=== PATIENT | male | born 1945 | race Caucasian/White ===

== ENCOUNTER 2019-05-03 16:22 | Inpatient (IN) | payer OTHER ==
[~2019-05-03] VITALS: Ht 175.3 cm; Wt 59.1 kg
--- NOTE | ~2019-05-03 | O ---
[facility] [place] [address] OPERATIVE REPORT Name: MAGALY PALUMBO Kyra Room #: 208-P ADM IN M.R.#: [id number] Admission: 05/03/19 Attend Phys: Jacqueline Gruber MD Discharge: Date of : 47 Report #: [id number] THIS REPORT FOR: //name// CC: Jacqueline Arroyo DATE OF SERVICE: 05/08/2019 PREOPERATIVE DIAGNOSIS: Decubitus ulcer, sacrum and bilateral hip. POSTOPERATIVE DIAGNOSIS: Decubitus ulcer, sacrum and hip. OPERATIVE PROCEDURE DONE: Excisional debridement of decubitus ulcers. OPERATING SURGEON: Ilya Pagan MD GLASS POLISHER: Alvaro. OPERATIVE FINDINGS: The patient was noted to have a large decubitus ulcers in the sacral region and also one in the right hip and one in the left. The right hip ulcer measured 6 cm, sacral ulcer measured 4 cm, 5 cm and 6 cm in diameter. The left hip decubitus ulcer was not debrided. INDICATIONS FOR THE PROCEDURE: The patient is a 74-year-old male who presented with multiple decubitus ulcers with some necrotic tissue at the floor of the ulcers. The patient was advised excisional debridement. DESCRIPTION OF PROCEDURE: After explaining to the patient in detail and informed consent was obtained, the patient was identified in the preoperative holding area. The patient was transferred to the operating room and was placed in supine position. Sequential compressive devices were placed for DVT prophylaxis. No preoperative antibiotics were given as the patient was already on antibiotics. The patient was placed in left lateral position. There were three decubitus ulcers, one measuring 4 cm, 5 cm and 6 cm. All were stage 4 ulcers. I started to take down all the necrotic tissue, excisional debridement of this was done up to the fascia and the surrounding subcutaneous tissue using a #15 blade. All the three ulcers of the sacral region were debrided distally. Thorough saline irrigation was given and the wound was packed. I also then debrided the wound on the right hip ulcer that measured approximately 6 cm. Again, this was a stage 4 ulcer. An excisional debridement of the necrotic tissue and was done and the wound was packed. Dressing was placed. The patient was stable at the end of the procedure. The patient was awoken from anesthesia and was transferred to the recovery room in stable condition. ESTIMATED BLOOD LOSS: Approximately [address] [address] OPERATIVE REPORT Name: MAGALY PALUMBO Room #: 208-P [facility] IN M.R.#: [id number] Admission: 05/03/19 Attend Phys: Jacqueline Gruber MD Discharge: Date of : 47 Report #: [id number] CONDITION THE PATIENT: Stable. FLUIDS GIVEN: Per anesthesia notes. SPECIMEN SENT: None. COMPLICATIONS: None. By: [id number] Ilya Pagan MD /nt
[2019-05-03 16:25] VITALS: BP 97/58
[2019-05-03] MEDS ORDERED: DORYX MPC120 MG PO (16:35)
[2019-05-03] MEDS ORDERED: BISACODYL10 MG RECTAL (16:53)
[2019-05-03] MEDS ORDERED: IRON325 M1 PO (17:20)
[2019-05-03] MEDS ORDERED: MAALOX ADVANCE355 M1 PO (17:21)
[2019-05-03] MEDS ORDERED: MILK OF MA400 MG/5 M PO (17:22)
[2019-05-03] MEDS ORDERED: REMERON SOLTAB45 MG PO (17:27)
[2019-05-03] MEDS ORDERED: MS CONTIN 30 MG30 M1 PO (17:28)
[2019-05-03] MEDS ORDERED: PEPCID20 MG PO (17:29)
[2019-05-03] MEDS ORDERED: NORCO 5-325 TA1 EAC1 PO (17:29)
[2019-05-03] MEDS ORDERED: TOPAMAX100 MG PO (17:30)
[2019-05-03] MEDS ORDERED: SANTYL OINTMENT30 G1 TOP (17:30)
[2019-05-03] MEDS ORDERED: POTASSIUM20 PO (17:30)
[2019-05-03] MEDS ORDERED: NORVASC 2.5 MG2.5 M1 PO (17:32)
[2019-05-03] MEDS ORDERED: VITAMIN C500 M2 PO (17:35)
[2019-05-03] MEDS ORDERED: CLONAZEPAM 0.50.5 M1 PO (17:36)
[2019-05-03] MEDS ORDERED: CARVEDILOL12.5 MG PO (17:36)
[2019-05-03 17:39] LABS: ABSOLUTE NEUTROPHILS 12.6 thou/uL (1.4-8.2); BASOPHILS 0.7 % (0.0-2.0); EOSINOPHILS 1.4 % (0.0-3.0); HEMATOCRIT 27.6 % (42.0-52.0); HEMOGLOBIN 9.3 gm/dL (14.0-18.0); LYMPHOCYTES 14.5 % (24.0-44.0); MCH 30.4 pg (26.0-34.0); MCHC 33.5 g/dL (28.0-37.0); MCV 90.8 fL (80.0-100.0); MONOCYTES 7.8 % (1.0-8.0); PLATELET COUNT 446 thou/uL (150-400); POLYS 75.6 % (36.0-66.0); RBC 3.04 mil/uL (4.50-6.00); RDW 16.4 % (10.5-14.5); WBC 16.7 thou/uL (4.0-11.0)
[2019-05-03 17:46] VITALS: BP 99/53
[2019-05-03 17:47] LABS: CALCIUM 8.8 mg/dL (8.5-10.1); CREATININE 0.9 mg/dL (0.7-1.3); POTASSIUM 3.9 mmol/L (3.5-5.1)
[2019-05-03 20:13] VITALS: BP 102/42
[2019-05-03 20:30] VITALS: BP 115/60
[2019-05-04] MEDS ORDERED: PROTONIX40 M2 PO (00:14)
[2019-05-04] MEDS ORDERED: CLONAZEPAM 0.50.5 M1 PO (00:15)
--- NOTE | 2019-05-04 00:50 | NUR ---
New pt from the ER with multiple wounds in his sacrum, heels, R hip and L lower buttocks. pt arrived unit @ around 194. pt is a&ox2, forgetful and not very good historian. assessments were completed and fluids and abx hung. pt recieved his night time meds. c/o of pain and was medicated with sceduled ER morphine. pt refused to turn for nurse to take pictures at this time, stated we should try at a later time. lunch box given. pt's been npo @midnight for a possible procedure tomorrow. Contact prec in place for a hx of cdiff and awaiting stool sample collection. v/s stable, no s/s of distress, call pemberton within reach. will cont to monitor
[2019-05-04 05:04] LABS: HEMATOCRIT 25.2 % (42.0-52.0); HEMOGLOBIN 8.4 gm/dL (14.0-18.0); MCH 30.4 pg (26.0-34.0); MCHC 33.3 g/dL (28.0-37.0); MCV 91.4 fL (80.0-100.0); RBC 2.76 mil/uL (4.50-6.00); RDW 16.3 % (10.5-14.5); WBC 12.5 thou/uL (4.0-11.0)
[2019-05-04 05:13] LABS: ALBUMIN 2.1 g/dL (3.4-5.0); CALCIUM 8.8 mg/dL (8.5-10.1); CREATININE 0.9 mg/dL (0.7-1.3); POTASSIUM 3.6 mmol/L (3.5-5.1); TOTAL BILIRUBIN 0.2 mg/dL (<0.1-1.0); TOTAL PROTEIN 6.4 g/dL (6.4-8.2)
[2019-05-04 08:41] VITALS: BP 100/51
--- NOTE | 2019-05-04 13:54 | NUR ---
WOUND CONSULT; ROUNDING WITH DR RUDOLPH. THIS PATIENT HAS (7) PRESSURE WOUNDS. THE BILATERAL HIPS, SACRUM AND BUTTOCL WELL THE LEFT ILIAC CREST AND LEFT ISCHIAL TUBEROSITY AND THE PERIRECTUM. ALL ARE CHRONIC AND STAGE 4. THE PATIENT IS ALERT AND ORIENTED. NO ODOR NOTED. RECOMMENDATIONS; 06/24 ANTONIA MOIST GAUZE PACKED IT WOUND COVER WITH ABD,DAILY/PRN
--- NOTE | 2019-05-04 15:48 | NUR ---
Case opened to follow for dc planning. Pt is alert and oriented x 3 but forgetful. He admitted from SNF at [facility]. He has been there since 04/12/19 and went there from [facility]. He was being treated for multiple stg iv wounds and therapy. He has been readmitted for evaluation of his wounds and possible surgical debridement. LTAC referral may be indicated. Prior to this the pt was living at home with his . Both are now at [facility] and likely need shelter care. The pt's is his primary emergency contact and their son Casey the alternate. The pt has a hx of parapelgia and functioned at a w/c level. It sounds as though they were not doing well at home prior to his admission to [facility]. The community health nursing director, Alem is faxing a copy of his living will and the family's contact numbers. She indicates they were anticipating he will need LTAC prior to returning there. Possible surgical debridement. Nurses station number given so pt's spouse can call and get update on his condition.
[2019-05-04 16:02] VITALS: BP 126/65
--- NOTE | 2019-05-04 19:51 | NUR ---
Assumed Pt care @ 0700 am. Assessment completed, VSS, A&Ox4. Pt on Special Contact to R/O C. Diff. Sent sample to culture/lab but Pharmacy cancelled order since Pt stool did not meet paramenters. Pt stool was soft and formed, not loose or had odor. Pt had three small BM today. Pt home HX is that he lives with his in Shelter and paperwork will be forthcoming for DPOA. Pt claims he can feel cold and pain in lower extremities. Has a good appetite and have ordered supplemental per Dr. Gruber verbal order. Also DC Amlodopine since Pt refused and states he does not take BP med or anything for his heart (i.e. angina, arrhythmias). Pt will be NPO after midnight as procedure for debridement possible.
[2019-05-04 20:15] VITALS: BP 132/66
--- NOTE | 2019-05-05 06:03 | NUR ---
assumed care of pt @1915. pt alert and oriented. took his night time pills with no hesitation. wound dressings clean dry and intact. v/s stable. no s/s distress. pt has been npo after midnight for a debridement of his wounds today. will cont to monitor
[2019-05-05 08:46] VITALS: BP 115/61
--- NOTE | 2019-05-05 10:48 | NUR ---
DISCHARGE PLANNING. IT IS INDICATED THAT PATIENT MAY BENEFIT FROM LTAC PLACEMENT ONCE HE IS MEDICALLY READY FOR DISCHARGE. PATIENT REFERRAL FAXED TO [facility] AND [facility] FOR REVIEW. UNIT SW AWARE. FOLLOWING TO ASSIST.
--- NOTE | 2019-05-05 11:54 | NUR ---
SW reviewed chart and spoke with nursing and attending physician. Pt is scheduled to have a debridement today. SW met with pt at bedside to discuss possible LTAC referral. Pt is agreeable if needed, but is also agreeable with returning to [facility], where his is. Referral faxed to [facility] this morning. [facility] liaison to evaluate and follow up on Wednesday. GUILLERMINA is following to assist as needed with discharge planning.
--- NOTE | 2019-05-05 13:01 | HC ---
[facility] [place] [address] CONSULTATION Name: MAGALY PALUMBO Kyra Room #: 460-P ADM IN M.R.#: [id number] Admission: 05/03/19 Attend Phys: Jacqueline Gruber MD Discharge: Date of : 47 Report #: [id number] THIS REPORT FOR: //name// CC: Jacqueline Arroyo DATE OF SERVICE: 05/04/2019 INFECTIOUS DISEASE CONSULTATION REASON FOR CONSULTATION: I was asked to evaluate concerning pelvic osteomyelitis. HISTORY OF PRESENT ILLNESS: The patient is a 74-year-old with history of chronic pelvic wounds and osteomyelitis in the setting of cauda equina syndrome and paraplegia. He has a history of seizure disorder, chronic pain syndrome, anxiety. He was at home with recent admission to the longterm due to progressive wounds. Because of the worsening of these areas, he was hospitalized for further care. No fever, chills or sweats. The patient was a poor historian. Discussed with wound care team in detail today. He has extensive wounds involving the sacrum and both hips, greater trochanters. Previously he had infection involving the right ankle. The patient has had no cough or sputum production. No nausea or vomiting. His appetite has been reasonable. He is incontinent of bowel and bladder and has an indwelling Marsh catheter. He was on doxycycline. Now on vancomycin and Zosyn. He has been seen by General Surgery who plans on further debridement. ALLERGIES: None known. MEDICATIONS: As noted on his MAR including doxycycline, iron, bisacodyl rectal suppository, Maalox, Milk of Magnesia, Remeron, MS Contin, Oak, Pepcid, potassium, Topamax, Norvasc, vitamin C, Coreg, clonazepam. PAST MEDICAL HISTORY: Seizure disorder, cauda equina syndrome, paraplegia, sacral wounds, osteomyelitis of his right ankle and foot, C. difficile colitis, anxiety, gastroesophageal reflux, anemia, protein-calorie malnutrition, chronic pain syndrome and narcotic dependence, neurogenic bladder and bowel. FAMILY HISTORY: Noncontributory. SOCIAL HISTORY: Nonsmoker, no significant alcohol intake. REVIEW OF SYSTEMS: A 10-point review of system was negative other than what has been described above. PHYSICAL EXAMINATION: [facility] [address] [place] [address] CONSULTATION Name: MAGALY PALUMBO Room #: 460-[facility] IN ..#: [id number] Admission: 05/03/19 Attend Phys: Jacqueline Gruber MD Discharge: Date of : 47 Report #: [id number] VITAL SIGNS: He was afebrile and hemodynamically stable. GENERAL: He was alert and cooperative. He was paraplegic. Full-thickness skin wounds with exposed muscle, fibrinous material, involving the sacrum and both hips. He was malnourished in appearance. No palpable adenopathy. EYES: Without scleral icterus. MOUTH: Without mucositis. CHEST: Lungs were clear. HEART: Regular, without murmur. ABDOMEN: Soft and nontender. EXTREMITIES: With contractures in the lower extremities. No peripheral edema. Right chest Port-A-Cath, Marsh catheter in place. PSYCHIATRIC: Mood normal. LABORATORY STUDIES: Hemoglobin 8.4; WBC 12.5, platelet count 420,000. Differential unremarkable. Sedimentation rate 92. Creatinine 0.9. Liver function test normal. C-reactive protein 64. C. difficile by PCR was canceled. Blood and wound cultures are pending. RADIOLOGICAL DATA: CT scan as noted above with evidence of sacral myositis and involvement of the left iliopsoas and gluteus muscles. Left hip and ischium osteomyelitis and suspected possible abscess in the region, right hip involvement as well. Proctitis and bladder wall thickening. IMPRESSION: 1. A 74-year-old paraplegic with cauda equina syndrome. 2. 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 3. Anxiety and chronic pain syndrome. 4. Seizure disorder. 5. History of Clostridium difficile colitis. 6. Neurogenic bowel and bladder with chronic indwelling Marsh catheter. 7. Previous right ankle osteomyelitis. RECOMMENDATIONS: Continue IV antibiotic therapy while awaiting culture results. Surgical debridement and wound care. May require more extensive orthopedic and plastic surgery in the future. Screen for C. difficile colitis, if diarrhea presents itself. <ELECTRONICALLY SIGNED> By: Ke Hopson MD 05/05/19 1301 [id number] Ke Hopson MD /nt
[2019-05-05 15:18] VITALS: BP 103/53
--- NOTE | 2019-05-05 15:38 | NUR ---
Nutrition: pt admitted with chronic sacral and bilateral ischial wounds, plan debridement and possible wound vac placement. pt reports current weight of 128# up from a low of 115#. Eats 50-75 % of meals and 100% of Ensure enlive TID. Understands protein needs and able to verbalize sources. Place as low risk with interventions in place.
--- NOTE | 2019-05-05 18:38 | NUR ---
Assumed Pt care @ 0700am. Assessment completed, VSS, A&Ox4. Dr. Vaz here and stated Pt would not be getting debridement today so no longer NPO. Changed wounds on Pt and did would care in the AM. Pt had a large bowel movement and tolerated wound care well. Pt stated he did not sleep well last evening so did not sleep until around 5am and slept until 0900am. Patient refused Amlodipine and Carvedilol again today. Pt also refused blood sugar checks and SCD, as well as boot that was ordered for him. Wound care team is aware as Pt stated that he didn't want the boot/SCD. Pt tolerates meals well and drinks all of the supplement ordered for all meals. Pt was alert and awake all morning and afternoon.
--- NOTE | 2019-05-05 18:46 | NUR ---
Dr. Vaz called and stated Pt will need to be NPO after midnight for [facility] Excisional Debridement for 05/06/19 @ 1100am.
[2019-05-05 20:17] VITALS: BP 115/56
[2019-05-06 08:00] VITALS: BP 136/76
[2019-05-06 10:43] LABS: HEMATOCRIT 27.8 % (42.0-52.0); HEMOGLOBIN 9.1 gm/dL (14.0-18.0)
[2019-05-06 15:00] VITALS: BP 146/82
--- NOTE | 2019-05-06 18:02 | NUR ---
ASSUMED PT CARE AT 7AM.PT IN BED RESTING. ASSESSMENT COMPLETED.VSS.PT WANTED TO KNOW WHEN HE WILL BE GOING FOR SURGERY TODAY.RECEIVED CALL FROM SURGERY AND WAS TOLD AROUND 10AM.PT INFORMED AND HE NOTIFIED HIS .AROUND 1015 PT LEFT PER BED ACCOMPANIED BY 2 RNS FROM OR.PT CAME BACK TO UNIT AROUND 1130AM WITHOUT SURGERY AND WAS TOLD THAT SURGERY HAS BEEN RESCHEDULED FOR WEDNESDAY. BOX LUNCH GIVEN.DR SALDIVAR HERE AND ORDER NOTED.PADILLA CHANGE DONE TO SACRAL WOUND ORDERED.COMPLETE BATH GIVEN AND Q2 TURNED AND REPOSITIONED DONE.PAIN MED GIVEN AND COMPLETE RELIEF NOTED.WILL CONTINUE TO MONITOR.
[2019-05-06 21:28] VITALS: BP 123/62
--- NOTE | 2019-05-07 05:55 | NUR ---
PT CARE ASSUMED AT 1900 .PT IS A/O X4.WOUND CHANGED DONE WITH DAKIN WET TO DRY.PT HAS A SOLORZANO CATHETER.PT HAS A RT CHEST PORT.PT IS TO BE MIDNIGHT TODAY FOR I/D TOMORROW.FR WISE ACCESSED PT SUGGESTED AIRLOSS MATTRESS BUT PT DECLINED.PT PAIN MGT WITH HYDROCODONE.WITH IS NONAMBULATORY AND MAXIMUM ASSIST.CONTINUE POC TILL EOS
[2019-05-07 08:16] VITALS: BP 142/69
--- NOTE | 2019-05-07 11:57 | HC ---
[facility] [place] [address] CONSULTATION Name: MAGALY PALUMBO Kyra Room #: 460-P [facility] IN .R.#: [id number] Admission: 05/03/19 Attend Phys: Jacqueline Gruber MD Discharge: Date of : 47 Report #: [id number] THIS REPORT FOR: //name// CC: Jacqueline Arroyo DATE OF SERVICE: 05/04/2019 HISTORY OF PRESENT ILLNESS: This is a 74-year-old male patient who has a history of paraplegia secondary to cauda equina syndrome. He has limited history to provide about himself. He is being followed by Dr. Arroyo at one of the facilities, was noted to have a very large sacral and greater trochanteric pressure ulcerations and I have been asked to see him with regard to wound care. The patient states he does have pain associated with these. He cannot give me much history on the duration and time of onset. PAST MEDICAL HISTORY: Positive for history of seizure disorder, previous cauda equina syndrome resulting in paraplegia, sacral pressure ulcerations, weakness, osteomyelitis of the right foot and ankle, enterocolitis due to Clostridium difficile, mood disorder, anxiety, gastroesophageal reflux, severe protein-calorie malnutrition, chronic pain syndrome requiring narcotic dependence and neurogenic bladder. MEDICATIONS: Include doxycycline, bisacodyl, ferrous sulfate, Maalox, Remeron, MS Contin, hydrocodone, famotidine, potassium, Santyl, Topamax, Norvasc, vitamin C, carvedilol, clonazepam. SOCIAL HISTORY: The patient has been living in a nursing care facility. He has no history of alcohol or tobacco use. FAMILY HISTORY: Unknown. REVIEW OF SYSTEMS: Other than that mentioned in the history of present illness is unobtainable due to the patient's level of cooperativeness. ALLERGIES: No known drug allergies. PHYSICAL EXAMINATION: VITAL SIGNS: At this time include temperature 36.4, pulse 66, respiratory rate 14, blood pressure 100/51. GENERAL: This is a chronically ill-appearing male patient who appears to be in mild discomfort. He appears annoyed that he is being evaluated. HEENT: Head normocephalic. Nose and throat are clear. NECK: Supple. LUNGS: Diminished. HEART: Regular. [address] [address] CONSULTATION Name: MAGALY PALUMBO Room #: [address] [place] [address] IN .R.#: [id number] Admission: 05/03/19 Attend Phys: Jacqueline Gruber MD Discharge: Date of : 47 Report #: [id number] ABDOMEN: Soft. Bowel sounds present. EXTREMITIES: He has significant contractures of his knees and hips. He has very large pressure ulcerations to the pelvic region. He has a stage 4 pressure ulceration to the bilateral greater trochanters. There is undermining all around, although they are relatively clean with granulation tissue, we are very close to bone, but none is directly exposed. He has stage 4 pressure ulceration to the sacral region and a stage 3 pressure ulceration to the left ischial tuberosity. He appears to be quite emaciated. All the ulcers are relatively clean. NEUROLOGIC: The patient has paraplegia and spasticity of the lower extremities. LABORATORY DATA: Include sodium 137, potassium 3.6, chloride 104, CO2 of 25, BUN 25, creatinine 0.9, glucose of 103. CRP is elevated at 64.2, albumin is quite low at 2.1. White blood cell count 12.5 down from 16.7 on admission, hemoglobin of 8.4. CT scan demonstrates extensive soft tissue wounds and ulcers involving the presacral region and bilateral posterolateral and lateral hip and thigh with myositis, extensive phlegmon concerning for osteomyelitis of the left hip and sacrum with septic arthritis not excluded. Subcutaneous and intramuscular gas is seen in the left lateral thigh and hip concerning for pyomyositis with underlying abscess, necrotizing fasciitis cannot be excluded. RECOMMENDATIONS: At this point in time, due to the findings on CT scan and the possible need for debridement, Dr. Vaz has been consulted. The patient does not appear to be clinically ill and therefore it seems less likely that he has necrotizing fasciitis. Nonetheless, I think a surgical evaluation would be appropriate. He will need aggressive nutritional support and we should consider PEG tube if he will allow as his significant malnutrition is going to severely impair any ability for wound healing and we would recommend some surgical debridement and possible placement of a wound VAC following surgical debridement. I reviewed this with Dr. Vaz, the surgeon bloom conveyor operator. In the meantime, we will place him on a low air loss mattress with q. 2 hour turning and repositioning, quarter strength Dakin's moist gauze packing for the time being. I appreciate being asked to see him in consultation. <ELECTRONICALLY SIGNED> By: Rajat Stahl MD 05/07/19 1157 [id number] Rajat Stahl MD /nt
[2019-05-07 14:43] VITALS: BP 122/81
--- NOTE | 2019-05-07 16:22 | NUR ---
ASSUMED PT CARE AT 7AM.PT IN BED RESTING.ASSESSMENT COMPLETED.VSS.PT HAS LARGE SOFT FORMED BROWN STOOL EARLY THIS SHIFT.COMPLETE BATH AND PERICARE GIVEN.DRSG CHANGE DONE TO SACRAL WOUND ORDERED.DR SALDIVAR HERE ORDER NOTED.TWWO HOUR LATER, PT CALLED OUT AND ANOTHER LARGE STOOL NOTED. ANOTHER DRSG CHANGE DONE. DR MUNOZ HERE AND SAID PT WILL BE GOING FOR SURGERY IN AM.RN DISCUSSED POSSIBLE DIVERTING COLOSTOMY FOR WOUND HEALING BUT PT SAID NO BECAUSE HIS MOM DEVELOPED COMPLICATION WITH COLOSTOMY.WILL CONTINUE TO MONITOR.
[2019-05-07 21:42] VITALS: BP 152/70
--- NOTE | 2019-05-08 03:45 | NUR ---
PATIENT HAS DECUB WOUNDS, WOUND DRESSING ARE C/D/I. PATIENT HAD A BM X1. PATIENT HAD INCREASED ANXIETY PRN KLONOPIN GIVEN PER ORDER. PATIENT HAS BEEN NPO SINCE MIDNIGHT. PATIENT TURNED Q 2 HOURS. PATIENT ENCORAGED FLUIDS AND SUPPLEMENT. PATIENT IN BED ASLEEP AT THIS TIME BREATHING REGULAR AND UNLABOURED.
[2019-05-08 06:50] LABS: HEMATOCRIT 26.7 % (42.0-52.0); HEMOGLOBIN 8.9 gm/dL (14.0-18.0); MCH 30.4 pg (26.0-34.0); MCHC 33.4 g/dL (28.0-37.0); MCV 91.2 fL (80.0-100.0); RBC 2.93 mil/uL (4.50-6.00); RDW 16.1 % (10.5-14.5); WBC 8.2 thou/uL (4.0-11.0)
[2019-05-08 07:09] LABS: CALCIUM 9.2 mg/dL (8.5-10.1); CREATININE 0.8 mg/dL (0.7-1.3); POTASSIUM 3.5 mmol/L (3.5-5.1)
[2019-05-08 08:00] VITALS: BP 116/73
--- NOTE | 2019-05-08 12:01 | NUR ---
Received awake on bed. On nothing per orem- pt informed and aware. Vital signs stable. On room air. With portacath at R chest- intact and flushing well. With ruiz in place and secured; output measured and recorded accordingly. Pt scheduled for I&D today- verified with pt if surgeon has talked to him and explained procedure- consent signed; OR nurse called and said they will take pt to OR at around 3-4pm, pt informed; to given anti-hypertensives as per OR nurse, given as prescribed. Maintained on isolation, ?cfiff- verified with physician and infectious disease nurse- Kaylan- may cancel isolation, order placed. With sacral ulcers/wounds- dressing C/D/I. Lab called- previously sent wound cultures cancelled because [facility] called and they cannot process the cultures since the swab used was - to re-order wound cultures and specimen to be sent again. Pt turned regularly. Assisted in ADLs. Able to swallow anti-hypertensives w/o difficulty.
--- NOTE | 2019-05-08 12:22 | NUR ---
GUILLERMINA reviewed chart and spoke with nursing and attending physician. Pt to go to the OR today for debridement. Pt may need a diverting colostomy. business continuity planner to fax clinical updates to [facility] for review. GUILLERMINA is following to assist as needed with discharge planning.
--- NOTE | 2019-05-08 14:12 | NUR ---
Nutrition: Received consult for sarcopenia and wounds, to add protein supplements, See. Assessed by RD prior to weekend, on 05/05. See note. [facility] Ensure Enlive supplements added TID to all meals. This supplies an additional 1050 kcals, 60 g protein/day. Pt has been NPO all day. Headed to the OR in the next hour or two for I&D today. As stated in EMR, pt with 6 pressure wounds - chronic sacral/bilateral ischial wounds w/ osteo. Has refused colostomy option per provider notes. Will resume sending Ensure Enlive when diet able to safely advance s/p procedures and add See modulars BID in addition. Pt still eating quite well, 75-100% of meals yesterday, with 100% of 2 supplements also. Will continue following pt weekly; low nutrition risk w/ numerous interventions in place and pt understanding of high protein needs.
[2019-05-08 19:30] VITALS: BP 119/56
[2019-05-08 20:22] VITALS: BP 127/70
[2019-05-08 21:38] VITALS: BP 106/57
[2019-05-08 23:39] VITALS: BP 102/56
[2019-05-09 03:11] VITALS: BP 93/59
--- NOTE | 2019-05-09 03:18 | NUR ---
PATIENT ARRIVED FROM SURGERY AT AROUND 1930. PATIENT ATE 75% OF HIS DINNER.PAIN CONTROLLED AT THIS TIME. PATIENT TURNED EVERY TWO HOURS BUT TAKES OFF THE WEDGES . CATH CARE DONE. PATIENT ENCOURAGED FLUIDS. PATIENT DRESSING ON BOTH HIP, AND SACRUM IS C/D/I. PATIENT IN BED ASLEEP AT THIS TIME BREATHING REGULAR AND UNLABOURED.
[2019-05-09 07:47] VITALS: BP 97/47
--- NOTE | 2019-05-09 11:50 | NUR ---
Received awake on bed. Due medications given as prescribed, able to swallow meds w/o difficulty. A+Ox3-4. On room air. Vital signs stable. Complained of pain, due PRN pain meds given as prescribed. On regular diet- assisted in eating and drinking; tolerating, no nausea, no vomiting and no abdominal pain noted. With portacath at R chest- intact and flushing well, on IV antibiotics. With ruiz in place, secured- output measured and recorded accordingly. Pt turned regularly on his side. Pt post I&D from yesterday, dressing C/D/I. Assisted in ADLs. Falls bundle in place.
--- NOTE | 2019-05-09 13:09 | NUR ---
SW reviewed chart and spoke with nursing and attending physician. Pt had debridement yesterday of right hip. Pt may have a diverting colostomy placed. Pt was not agreeable with plan for colostomy yesterday. SW updated [place] [facility] liaison. Plan is for pt to discharge back to [facility] when medically stable. GUILLERMINA is following to assist as needed with discharge planning.
[2019-05-09 16:01] VITALS: BP 109/51
[2019-05-09 19:15] VITALS: BP 96/52
[2019-05-09 23:46] VITALS: BP 112/65
[2019-05-10 03:29] VITALS: BP 124/62
--- NOTE | 2019-05-10 04:34 | NUR ---
ASSUMED CARE ALEK 1899. AXOX3. HAD COUPLE BM AND DRESSING CHANGED AT BEDSIDE. PERSISTENT PAIN TO SACRUM,BUTTOCKS. LOW BP ADRESSED TO CLINICAL RESEARCH SPECIALIST HOOK AND EYE MACHINE OPERATOR FOR . CORRECTED LATER WITHOUT ANY INTERVENTIONS. NO S/S ACUTE DISTRESS NOTED OR REPORTED AT THIS TIME. WILL CONT TO MONITOR FOR ANY CHANGES IN CONDITION.
[2019-05-10 07:47] VITALS: BP 123/65
--- NOTE | 2019-05-10 15:36 | NUR ---
GUILLERMINA reviewed chart and spoke with nursing and attending physician. Pt may have wound vac placed. Pt continues to refuse diverting colostomy placement. production planner scheduler to fax updates to [facility] tomorrow. Plan is for pt to return to [facility] when medically stable. GUILLERMINA is following to assist as needed with discharge planning.
[2019-05-10 16:06] VITALS: BP 121/67
--- NOTE | 2019-05-10 16:49 | NUR ---
Assumed pt care at 7am.Pt in bed most of the time today but able to reposition and turned self as needed.Assisted pt with tray setup at all meals.Good appetite noted.Pt was very resentful about diverting colostomy placement for wound healing.Drsg change and wound picture done. Pt refused q2h repositioned in bed.Later this afternoon,wound vac placed by wound care nurse.Dr Gruber here and no new order noted but immigration case manager said pt might [facility] am if stable.Pt in bed resting at present. Will continue to monitor.
[2019-05-10 19:58] VITALS: BP 96/52
--- NOTE | 2019-05-11 02:58 | NUR ---
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
--- NOTE | 2019-05-11 06:10 | NUR ---
PT PULLED VAC OUT AND DISCONTINUED THE RIGHT SIDE.STAFF DISCONTINUES THE OTHER SIDE AND DID DRESSING WITH WET TO DRY DRESSING AND ABD .
[2019-05-11 07:17] VITALS: BP 82/48
[2019-05-11 08:55] VITALS: BP 104/58
[2019-05-11 10:06] VITALS: BP 133/65
--- NOTE | 2019-05-11 10:23 | NUR ---
Assumed pt care at 7am.Pt in bed sleeping early this am till around 0830. Bp was 82/[address] Gruber ordered ns 500ml bolus.Bp reading prior to iv bolus was 104/58.Assisted pt with tray setup,good appetite noted.Dr Rizzo rounded on pt later this morning and discussed care option with pt regarding diverting colostomy placement but not well received by pt. All he wanted to do was to dc to [facility].Dr Rizzo agreed the only option to make pt qualify for ltac was to be on telemetry floor. Pt potassium today was low due to diarrhea. Transfer order to telemetry floor noted.Nsg specialty food products supervisor noted.Pt will be transfer when bed ready.Pt informed about transfer.Will continue to monitor.
--- NOTE | 2019-05-11 11:48 | EKG ---
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
--- NOTE | 2019-05-11 12:29 | NUR ---
SW reviewed chart and spoke with nursing and attending physician. Pt removed his wound vac. Pt with orders to transfer to CC/Tele for closer monitoring. Pt may need LTAC level of care at time of discharge for continued wound care services. GUILLERMINA updated [facility] post-acute liaison. GUILLERMINA is following to assist as needed with discharge planning.
[2019-05-11 12:55] VITALS: BP 11/62
--- NOTE | 2019-05-11 14:14 | NUR ---
WOUND CONSULT; ROUNDING WITH DR RUDOLPH. THE VAC DRESSING WAS REMOVED AT SOME POINT TODAY DUE TO SEAL ISSUES AND PATIENTS REQUEST. THE WOUNDBEDS REMAIN CLEAN WITH VIABLE TISSUE. NON ODOROUS AT THIS TIME. RECOMMEDNATIONS WE WILL USE [facility] FOR NOW AND RESUME VAC THERAPY TOMORROW. RN PRESENT
[2019-05-11 15:42] LABS: HEMATOCRIT 24.7 % (42.0-52.0); HEMOGLOBIN 8.2 gm/dL (14.0-18.0); MCH 30.8 pg (26.0-34.0); MCHC 33.2 g/dL (28.0-37.0); MCV 92.9 fL (80.0-100.0); RBC 2.66 mil/uL (4.50-6.00); RDW 16.5 % (10.5-14.5)
[2019-05-11 15:45] VITALS: BP 98/54
[2019-05-11 15:50] LABS: CREATININE 0.9 mg/dL (0.7-1.3); POTASSIUM 3.9 mmol/L (3.5-5.1)
--- NOTE | 2019-05-11 16:41 | NUR ---
PATIENT TRANSFERED FROM [address] [place] [address] TO [facility] [id number]. ALERT X3 WITH FORGETFULNESS. WOUNDS CARE ROUNDED. PT DECLINED WOUND VAC DUE TO KEEPING HIM UP AT NIGHT. DRESSING REPLACED BY SISSY AND WOUND NURSE PER ORDERS. PT ABLE TO MOVE FROM SIDE TO SODE NEEDED. CURRENTLY PATIENT IS ASLEEP. DECLINED NOON MEAL. WILL LIKELY DC TO LTAC AFTER 3 NIGHTS ON TELE. FALL PROTOCOL IN PLACE CALL LIGHT IN REACH.
[2019-05-11 19:19] VITALS: BP 93/63
--- NOTE | 2019-05-11 23:50 | NUR ---
PATIENTS CARES WERE ASSUMED AT SHIFT CHANGE. PATIENT WAS ASSESSED AND MEDS WERE PASSED. AFTER A TIME TO VISIT WITH THIS PATIENT ABOUT HIM BEING A PARAPLEGIC. THIS PATIENT STATED HE IS NOT A PARA GAYTAN NOBODY HELPS HIM OUT OF BED. PATIENT STATES HE HAS NOT BEEN OUT OF BED SINCE HE HAS BEEN IN THE HOSPITAL, A ORDER FOR PT HAS BEEN PLACED. THIS INFORMATION WAS GIVEN TO THE PATIENT AND HE STATES HE IS LOOKING FORWARD TO IT. HOURLY ROUNDS WERE DONE.THE BED IS IN A LOW AND LOCKED POSITION.THE BE ALARM IS ON. PASSED THIS PATIENT TO ANOTHER NURSE AFTER REPORT WAS GIVEN AT 2100 WAS [place] AT 2100.
[2019-05-12 04:04] VITALS: BP 106/60
--- NOTE | 2019-05-12 05:42 | NUR ---
ASSESSMENT CHARTED, MEDS GIVEN CHARTED. TOOK OVER CARE OF PATIENT AT 2100. PT C/O PAIN WHERE HIS WOUNDS WERE DEBRIDED 8 PAIN, MEDS GIVEN CHARTED. Q2 TURNED CHARTED BY RAILROAD CAR REPAIRMAN. PATIENT ON LOW AIR LOSS MATRESS. WOUNDS HAD ALREADY BEEN DRESSED DURING DAY SHIFT AND REMAINED DRY. WOUND VAC WAS NOT IN PLACE DURING SHIFT. PLAN OF CARE IS FOR PATIENT TO TRANSFER TO REHAB/LTAC UPON RELEASE.
[2019-05-12 08:00] VITALS: BP 112/69
[2019-05-12 12:20] VITALS: BP 112/69
--- NOTE | 2019-05-12 12:27 | NUR ---
FAXED REFERRAL TO [facility] SPOKE WITH CHANTELL IN ADM SHE RECEIVED REFERRAL AND WILL REVIEW.
--- NOTE | 2019-05-12 13:48 | NUR ---
[facility] updated regarding anticipated dc Wednesday. They are reviewing updated clinical. Pt's called him today and asked if we could check on ltac placement at [facility] in [place], [place]. [facility] contacted at [phone]. Will ask dc order planner to fax referral to them as well. I have left several messages for their admission dept. Will follow.
[2019-05-12 16:25] VITALS: BP 128/70
[2019-05-12 16:40] VITALS: BP 136/93; BP 163/93
--- NOTE | 2019-05-12 17:13 | NUR ---
PT CARE ASSUMED APPROX 0700. ASSESSMENTS CHARTED. DENIES SOA. VSS. REPORTS 7-8/10 PAIN AND SACRUM/BUTTOCKS. PT REPORTS ADEQUATE PAIN MANAGEMENT. TURNING Q2 HRS AND PRN. WOUND CARE COMPLETED PER ORDER. PT TOLERATING POC. PT AND RECEIVED CLINICAL AND POC UPDATES MULTIPLE TIMES THIS SHIFT. THEY CONTINUE TO ASK THE SAME QUESTIONS REPORTING THAT NO ONE HAS EXPLAINED THINGS PREVIOUSLY REVIEWED. THIS NURSE WILL CONTINUE TO EDUCATE. NO DISTRESS NOTED.
[2019-05-12 19:47] VITALS: BP 125/75
[2019-05-13 04:11] VITALS: BP 150/82
--- NOTE | 2019-05-13 06:12 | NUR ---
ASSESSMENTS CHARTED, MEDS GIVEN CHARTED. ALERT AND ORIENTED, STARTED SHIFT IN PAIN 8/10 [place] MEDS AVAILABLE UNTIL 2100. FOLLOWED WITH BREAKTHROUGH PAIN MEDS AT MIDNIGHT AND 400. PATIENT REFUSED LOVENOX SHOT WITH EVENING MEDS. PATIENT ONLY ALLOWED HIMSELF TO BE TURNED TWICE DURING THE NIGHT THEN HE MOVED THE PROPS QUICKLY AND WENT BACK ON HIS BACK. STILL RECEIVING IV PIPERACILLIN. PLAN OF CARE IS FOR PATIENT TO TRANSFER WHEN AVAILABLE TO LTACH. FALL PRECAUTIONS IN PLACE.
[2019-05-13 08:15] VITALS: BP 120/76
[2019-05-13 11:55] VITALS: BP 124/71
[2019-05-13 15:45] VITALS: BP 127/89
--- NOTE | 2019-05-13 17:33 | NUR ---
PT CARE ASSUMED APPROX 0700. ASSESSMENT CHARTED. DENIES SOA. VSS. REPORTS ADEQUATE PAIN MANAGEMENT OF SACRAL/BUTTOCK PAIN. REFUSED TURNS ALL DAY. COMPLIED WITH WOUND CARE. SOLORZANO PATENT. PAC PATENT. PT CONTINUES TO HAVE QUESTIONS REGARDING POC DEPSITE EDUCATING HIM MULTIPLE TIMES. TOLERATING POC. NO DISTRESS NOTED.
[2019-05-13 20:21] VITALS: BP 119/69
--- NOTE | 2019-05-14 03:23 | NUR ---
ASSESSMENTS CHARTED, MEDS GIVEN CHARTED. PATIENT C/O PAIN DURING SHIFT CHANGE BEDSIDE REPORT 01/28, DAY NURSE GAVE BREAKTHROUGH DOSE. PATIENT HAVING LOOSE STOOLS TODAY. PATIENT WOUND DRESSINGS WERE CHANGED DURING SHIFT DUE TO BOWEL MOVEMENT. C/O PAIN AGAIN AROUND 0130, MEDS GIVEN, PATIENT STILL HAVING HARD TIME SLEEPING DUE TO PAIN, GAVE WARM BLANKET AND HE WAS FINALLY ABLE TO FALL ASLEEP FOR AWHILE.
[2019-05-14 05:07] LABS: CALCIUM 9.2 mg/dL (8.5-10.1); CREATININE 0.9 mg/dL (0.7-1.3); MAGNESIUM 1.9 mg/dL (1.8-2.4); PHOSPHORUS 3.1 mg/dL (2.5-4.9); POTASSIUM 3.5 mmol/L (3.5-5.1)
[2019-05-14 05:08] LABS: ABSOLUTE NEUTROPHILS 6.6 thou/uL (1.4-8.2); BASOPHILS 0.9 % (0.0-2.0); EOSINOPHILS 5.1 % (0.0-3.0); HEMATOCRIT 27.1 % (42.0-52.0); HEMOGLOBIN 8.9 gm/dL (14.0-18.0); LYMPHOCYTES 23.4 % (24.0-44.0); MCH 30.4 pg (26.0-34.0); MCHC 32.8 g/dL (28.0-37.0); MCV 92.8 fL (80.0-100.0); MONOCYTES 8.4 % (1.0-8.0); PLATELET COUNT 327 thou/uL (150-400); POLYS 62.2 % (36.0-66.0); RBC 2.92 mil/uL (4.50-6.00); RDW 16.2 % (10.5-14.5); WBC 10.6 thou/uL (4.0-11.0)
[2019-05-14 05:59] VITALS: BP 128/71
[2019-05-14 08:00] VITALS: BP 120/78
[2019-05-14 11:37] VITALS: BP 103/64
--- NOTE | 2019-05-14 11:42 | NUR ---
Pt was cranky, saying that he could not sleep through over night. Pt followed commands. Turned by himself by changing his position. VSS. Wound dressings were all in place. Marsh in place. 0845-This nurse set the tray up, opened up all drinks, cut English toasts, and pt could feed by himself. Pt ate all from the tray. 1100-Pt had BM, loose not waterly. 1130-Changd the dressings from all pressure ulcer areas.
[2019-05-14 16:00] VITALS: BP 111/72
[2019-05-14 20:29] VITALS: BP 129/83
[2019-05-15 05:21] VITALS: BP 122/70
--- NOTE | 2019-05-15 05:44 | NUR ---
ASSESSMENTS CHARTED, MEDS REPORTED GIVEN. PATIENT RESTING IN BED DURING SHIFT. C/O ROOM TEMPERATURE BEING TOO HOT INCREASING DISCOMFORT. C/O HIP PAIN 8/10 DURING SHIFT. PATIENT NOT ALWAYS WILLING TO BE REPOSITIONED. FALL PRECAUTIONS IN PLACE. PLAN OF CARE IS FOR PATIENT TO BE TRANSFERED TO AN [facility]AC [facility], [facility]OS[facility] TO HIS HOME.
[2019-05-15 08:10] VITALS: BP 125/76
[2019-05-15] MEDS ORDERED: DAKIN'S473 M2 IRRIG (10:37)
[2019-05-15] MEDS ORDERED: PROBIOTIC1 EAC1 PO (10:37)
[2019-05-15] MEDS ORDERED: ZINC SULFATE 2220 MG PO (10:37)
[2019-05-15 11:10] VITALS: BP 119/73
[2019-05-15] MEDS ORDERED: ZOSYN 3.3753.375 GM IV (15:41)
--- NOTE | 2019-05-15 16:21 | NUR ---
patient accepted to [facility]. Accepting phys Dr Shanelle Kidd. Orders rec and faxed and chart copied. Notified DON at [facility] of dc to [facility]. patients first choice is [facility] he is agreeable with dc.
--- NOTE | 2019-05-15 16:22 | NUR ---
PT DISCHARGING TODAY TO [facility] FOR LTC FAXED DC ORDERS/SUMMARY TO FACILITY RECEIVED CONFIRMATION AND LEFT MSG WITH ADM AT FACILITY TIME OF TRANSPORT. ARRANGED TRANSPORT BY AMBULANCE ([facility]) FOR 1630 TODAY AND SW NOTIFIED PT'S NURSING FACILITY [facility] OF DC TO [facility]. PT'S FAMILY NOTIFIED BY SW ([facility]) UNIT NOTIFIED AND CHART COPY PER US. RN TO CALL REPORT TO [phone].
--- NOTE | 2019-05-15 17:48 | NUR ---
ASSUMED CARE 0700. ORIENTED X4, PAIN MANAGED WITH MEDICATIONS, WOUND DRESSING REDRESSED PER ORDERS REMIAN C/D/I. ENCOURAGE PT TO ALLOW FOR REPOSITIONING HOWEVER, PATIENT READJUST POSITION TO HOW HE PREFERS. PT DC TO LTAC AT 1630, REPORTED OFF TO NURSE AT FACILITY. ALL BELONGINGS SENT WITH PATIENT. RIGHT CHEST PORT REMIANED ASSESSED FOR IV ANTIBIOTICS AT LTAC. FAMILY NOTIFIED TO TRANSFOR. [facility]/DISCHARGE PAPERS SIGNED. LEFT VIA [facility].
== END 2019-05-15 18:01 | DRG 463 ==
LOC: ER 16:22 → EROBS 19:22 → 4W 19:22 → 2N 05-11 13:35
PROVIDERS: Anesthesiology; Emergency Medicine; Internal Medicine; Nurse Practitioner Family; ADMIT Hospitalist
PROC: 0JBL0ZZ Excision of Right Upper Leg Subcutaneous Tissue and Fascia, Open Approach (ICD-10-PCS; principal; 2019-05-08)
PROC: 0JB70ZZ Excision of Back Subcutaneous Tissue and Fascia, Open Approach (ICD-10-PCS; principal; 2019-05-08)
DX: M86.8X8 Other osteomyelitis, other site (principal); L89.323 Pressure ulcer of left buttock, stage 3; E43 Unspecified severe protein-calorie malnutrition; L89.313 Pressure ulcer of right buttock, stage 3; L89.154 Pressure ulcer of sacral region, stage 4; L89.224 Pressure ulcer of left hip, stage 4; L89.214 Pressure ulcer of right hip, stage 4; G82.20 Paraplegia, unspecified; G83.4 Cauda equina syndrome; F11.20 Opioid dependence, uncomplicated; Z68.1 Body mass index [BMI] 19.9 or less, adult; K59.2 Neurogenic bowel, not elsewhere classified; M46.28 Osteomyelitis of vertebra, sacral and sacrococcygeal region; M86.8X5 Other osteomyelitis, thigh; M60.852 Other myositis, left thigh; M60.851 Other myositis, right thigh; D72.829 Elevated white blood cell count, unspecified; G40.909 Epilepsy, unspecified, not intractable, without status epilepticus; F41.9 Anxiety disorder, unspecified; K21.9 Gastro-esophageal reflux disease without esophagitis; G89.4 Chronic pain syndrome; F39 Unspecified mood [affective] disorder; D50.9 Iron deficiency anemia, unspecified; I10 Essential (primary) hypertension; Z79.899 Other long term (current) drug therapy
CPT/HCPCS: 10040; 10081; 50010; 50101; 50386; 50403; 62110; 62900; 70005